=== PATIENT | male | born 1985 | race Caucasian/White ===

== ENCOUNTER → 2018-02-01 | Outpatient (CLI) | payer OTHER | END | disposition home or self-care (01) | LOC: RAD 16:35 | PROVIDERS: ATTEND Physician Assistant | DX: S90.31XA Contusion of right foot, initial encounter (principal); S90.01XA Contusion of right ankle, initial encounter; M79.89 Other specified soft tissue disorders; X58.XXXA Exposure to other specified factors, initial encounter ==